=== PATIENT | female | born 1945 | race Caucasian/White ===

== ENCOUNTER 2018-02-26 11:13 | Emergency (ER) | payer MEDICARE, OTHER ==
[2018-02-26 11:52] VITALS: BP 80/62
--- NOTE | 2018-02-26 12:17 | UC ---
Respiratory Complaint HPI - HPI Summary HPI Summary: The patient is a 72-year-old female with a 4 day history of progressively worsening fatigue and cough. She has a long history of dyspnea on exertion states that she is at her baseline. She has had no fever. He has had some chills. She has had no near syncope. She has had no chest pain. She is an ex- smoker. He has had pneumonia once in the past. She has had anorexia but denies any vomiting or diarrhea. - History of Current Complaint Chief Complaint: UCRespiratory Stated Complaint: SLUGGISH,TIRED Time Seen by Provider: 02/26/18 11:56 Hx Obtained From: Patient Onset/Duration: Gradual Onset, Lasting Days Timing: Constant Severity Initially: Mild Severity Currently: Moderate Pain Intensity: 0 Pain Scale Used: 0-10 Numeric Character: Cough: Productive Aggravating Factors: Exertion Alleviating Factors: Nothing Associated Signs And Symptoms: Positive: Dyspnea - Chronic complaint, Chills - Allergies/Home Medications Allergies/Adverse Reactions: Allergies Allergy/AdvReac Type Severity Reaction Status Date / Time No Known Allergies Allergy Verified 02/26/18 11:39 Home Medications: Home Medications Cholecalciferol TAB* [Vitamin D TAB*] 2,000 units PO WEEKLY 02/26/18 [History Confirmed 02/26/18] Levothyroxine TAB* [Synthroid TAB*] 50 mcg PO DAILY 02/26/18 [History Confirmed 02/26/18] PMH/Surg Hx/FS Hx/Imm Hx Previously Healthy: Yes Respiratory History: Pneumonia - Surgical History Surgical History: Yes Surgery Procedure, Year, and Place: hysterectomy - Family History Known Family History: Positive: Hypertension - Social History Alcohol Use: None Substance Use Type: None Smoking Status (MU): Former Smoker When Did the Patient Quit Smoking/Using Tobacco: 12/2016 Review of Systems Constitutional: Fatigue Skin: Negative Eyes: Negative ENT: Negative Respiratory: Cough Cardiovascular: Negative Gastrointestinal: Negative Genitourinary: Negative Motor: Negative Neurovascular: Negative Musculoskeletal: Negative Neurological: Negative Psychological: Negative Is Patient Immunocompromised?: No All Other Systems Reviewed And Are Negative: Yes Physical Exam Triage Information Reviewed: Yes Appearance: No Pain Distress, Ill-Appearing Vital Signs: Initial Vital Signs Temp 100.2 F 02/26/18 11:41 Pulse 97 02/26/18 11:41 Resp 20 02/26/18 11:41 BP 80/62 02/26/18 11:41 Pulse Ox 95 02/26/18 11:41 Vital Signs Reviewed: Yes Eyes: Positive: Conjunctiva Clear ENT: Positive: Hearing grossly normal. Negative: Nasal congestion, Nasal drainage, Trismus, Muffled voice, Hoarse voice Neck: Positive: Supple, Nontender, No Lymphadenopathy Respiratory: Positive: No respiratory distress, No accessory muscle use, Rhonchi Cardiovascular: Positive: RRR, No Murmur Musculoskeletal: Positive: ROM Intact, No Edema Neurological: Positive: Alert Skin Exam: Normal UC Diagnostic Evaluation - Laboratory O2 Sat by Pulse Oximetry: 95 - low normal - Radiology Xray Interpretation: Positive (See Comments) - rll infriltrate Radiology Interpretation Completed By: Radiologist Respiratory Course/Dx - Course Course Of Treatment: D/W [facility] ED attending. accepts pt - Differential Dx/Diagnosis Provider Diagnoses: pneumonia Discharge - Sign-Out/Discharge Documenting (check all that apply): Discharge/Admit/Transfer - Discharge Plan Condition: Guarded Disposition: TRANS HIGHER LVL OF CARE FAC Forms: *Work Release Referrals: Kenyetta Stacy MD [Primary Care Provider] - Additional Instructions: Go directly to the ER You need a higher level of care than we can provide you take your XR I spoke to Ammy Robison NP - Billing Disposition and Condition Condition: GUARDED Disposition: Trans Higher Lvl of Care Fac
--- NOTE | 2018-02-26 13:17 | RAD ---
Indication: Cough. 2 views of the chest including dual energy PA views are reviewed. No mediastinal shift is noted. Lung floyd appear hyperinflated. There is suggestion of some increased density in the periphery of the right lower lobe for which early pneumonia cannot BE excluded. No pneumothorax is noted. IMPRESSION: There is suggestion of early infiltrate in the lateral aspect of the right lower lobe for which pneumonia cannot BE excluded.
== END 2018-02-26 12:29 | disposition short-term general hospital (02) ==
LOC: UCCORT 11:13
DX: J18.9 Pneumonia, unspecified organism (principal); R06.00 Dyspnea, unspecified; R53.83 Other fatigue; Z82.49 Family history of ischemic heart disease and other diseases of the circulatory system; Z87.891 Personal history of nicotine dependence
CPT/HCPCS: 71046; 99202; G0463

== ENCOUNTER 2019-05-20 12:26 | Emergency (ER) | payer MEDICARE, OTHER ==
--- NOTE | 2019-05-20 13:27 | ED ---
GI/ HPI - HPI Summary HPI Summary: 73 year old F presenting to [facility] accompanied by daughter complains of intermittent episodes of fecal incontinence followed by rectal bleeding since a colonoscopy she had over a year ago, worse since this morning. Patient denies associated dizziness, palpitations, shortness of breath. Patient states that she has had these episodes before and that they usually resolve on their own. However, this morning, she had more rectal bleeding than she normally does. Per daughter, patient has been using and filling up many pads. The patient denies pain. The patient rates the pain 0/10 in severity. Symptoms aggravated by nothing. Symptoms alleviated by nothing. Patient states she is not taking blood thinners. Patient states she has not taken any aspirin or ibuprofen. - History of Current Complaint Chief Complaint: EDGIBleed Time Seen by Provider: 05/20/19 13:20 Stated Complaint: BLOOD IN STOOL Hx Obtained From: Patient, Family/Real Estate Leasing Agent - daughter Onset/Duration: Started Weeks Ago, Still Present, Worse Since - this morning Timing: Intermittent Current Severity: None Pain Intensity: 0 Associated Signs and Symptoms: Positive: Negative - Dizziness, shortness of breath, palpitations Aggravating Factor(s): Nothing Alleviating Factor(s): Nothing - Allergy/Home Medications Allergies/Adverse Reactions: Allergies Allergy/AdvReac Type Severity Reaction Status Date / Time No Known Allergies Allergy Verified 05/20/19 12:32 PMH/Surg Hx/FS Hx/Imm Hx Endocrine/Hematology History: Reports: Hx Thyroid Disease Respiratory History: Reports: Hx Pneumonia Psychiatric History: Reports: Other Psychiatric Issues/Disorders - hx anorexia - Surgical History Surgery Procedure, Year, and Place: hysterectomy. colonoscopy 2018 Infectious Disease History: No Infectious Disease History: Denies: Traveled Outside the [place] in Last 30 Days - Family History Known Family History: Positive: Hypertension - Social History Alcohol Use: None Hx Substance Use: No Substance Use Type: Reports: None Hx Tobacco Use: Yes Smoking Status (MU): Former Smoker Review of Systems Negative: Palpitations Negative: Shortness Of Breath Positive: Other - fecal incontinence followed by rectal bleeding Neurological: Negative - Dizziness All Other Systems Reviewed And Are Negative: Yes Physical Exam - Summary Physical Exam Summary: VITAL SIGNS: Reviewed. GENERAL: Patient is a well-developed and nourished FEMALE who is lying comfortable in the stretcher. Patient is not in any acute respiratory distress. HEAD AND FACE: No signs of trauma. No ecchymosis, hematomas or skull depressions. No sinus tenderness. EYES: PERRLA, EOMI x 2, No injected conjunctiva, no nystagmus. EARS: Hearing grossly intact. Ear canals and tympanic membranes are within normal limits. MOUTH: Oropharynx within normal limits. NECK: Supple, trachea is midline, no adenopathy, no JVD, no carotid bruit, no c- spine tenderness, neck with full ROM. CHEST: Symmetric, no tenderness at palpation. LUNGS: Clear to auscultation bilaterally. No wheezing or crackles. CVS: Regular rate and rhythm, S1 and S2 present, no murmurs or gallops appreciated. ABDOMEN: Soft, non-tender. No signs of distention. No rebound, no guarding, and no masses palpated. Bowel sounds are normal. EXTREMITIES: FROM in all major joints, no edema, no cyanosis or clubbing. NEURO: Alert and oriented x 3. No acute neurological deficits. Speech is normal and follows commands. SKIN: Dry and warm. Rectal exam chaperoned by nurse Giraldo: The patient has multiple large hemorrhoids Triage Information Reviewed: Yes Vital Signs On Initial Exam: Initial Vitals Temp Pulse Resp BP Pulse Ox 97.6 F 81 16 147/84 94 05/20/19 12:30 05/20/19 12:30 05/20/19 12:30 05/20/19 12:30 05/20/19 12:30 Vital Signs Reviewed: Yes Diagnostics - Vital Signs Vital Signs Temp Pulse Resp BP Pulse Ox 05/20/19 12:30 97.6 F 81 16 147/84 94 - Laboratory Result Diagrams: 05/20/19 13:42 05/20/19 13:42 Lab Statement: Any lab studies that have been ordered have been reviewed, and results considered in the medical decision making process. Re-Evaluation - Re-Evaluation First Eval Re-Evaluation Time: 16:11 Comment: discussed disposition plan with patient and daughter. patient and daughter are agreeable to discharge GIGU Course/Dx - Course Assessment/Plan: Blood work without any significant abnormality. The H&H is 15.1 and 44. Glucose 103. Total protein 6.1. In the physical exam, the patient has multiple hemorrhoids. I think the patient is bleeding from the hemorrhoids at this point. Occult blood test positive. I discussed my physical exam and findings with Dr. Wooten from GI and he recommends for the patient to be discharged, follow up with GI as an outpatient. The patient was given instructions to return to the emergency room immediately if she continues to have heavy bleeding. The patient and the patients daughter understands and agrees. . I discussed all the findings and test results with the patient. Patient was instructed to return to the emergency room immediately if any of the symptoms returns or worsens. Plan of care was discussed with the patient and she understands and agrees. All questions were answered to patient satisfaction. There were no further complaints or concerns. Lung exam before discharge: CTA B/L. Good air exchange. No wheezing or crackles heard. CVS: S1 and S2 present. No murmurs appreciated. Patient is alert and oriented x 3. Patient is hemodynamically stable. Patient will be discharged home with follow up from in 3 days. - Diagnoses Provider Diagnoses: Rectal bleed, Hemorrhoids - Physician Notifications Discussed Care Of Patient With: Cristobal Wooten Time Discussed With Above Provider: 15:58 Instructed by Provider To: Other - Dr. Wooten, , recommends discharging patient to follow up with him as an outpatient. Discharge ED - Sign-Out/Discharge Documenting (check all that apply): Patient Departure - Discharge Patient Received Moderate/Deep Sedation with Procedure: No - Discharge Plan Condition: Stable Disposition: HOME Patient Education Materials: Hemorrhoids (ED), Rectal Bleeding (ED) Referrals: Cristobal Wooten DO [Doctor of Osteopathy] - 3 Days Additional Instructions: Follow up with Dr. Wooten, gastroenterology, in 3 days. Return to the Emergency Department for new or worsening symptoms. - Billing Disposition and Condition Condition: STABLE Disposition: Home - Attestation Statements Document Initiated by Vicky: Yes Documenting Scribe: Hazel Amaro Provider For Whom Vicky is Documenting (Include Credential): Cole Hull MD Scribe Attestation: Richard, Hazel Amaro, scribed for Cole Hull MD on 05/20/19 at 1843. Scribe Documentation Reviewed: Yes Provider Attestation: The documentation as recorded by the Hazel michaud accurately reflects the service I personally performed and the decisions made by me, Cole Hull MD Status of Scribe Document: Viewed
[2019-05-20 13:53] LABS: ABS Basophils 0.1 10^3/ul (0-0.2); ABS Eosinophils 0.2 10^3/ul (0-0.6); ABS Lymphocytes 1.6 10^3/ul (1.0-4.8); ABS Monocytes 0.4 10^3/ul (0-0.8); ABS Neutrophils 3.2 10^3/ul (1.5-7.7); Eosinophil % 3.7 %; Hematocrit 44 % (35-47); Hemoglobin 15.1 g/dL (12.0-16.0); Lymphocyte % 29.9 %; Mean Corpuscular HGB Conc 34 g/dL (31-36); Mean Corpuscular Hemoglobin 30 pg (27-31); Mean Corpuscular Volume 86 fL (80-97); Mean Platelet Volume 7.7 fL (7.4-10.4); Nucleated Red Blood Cells % 0.1; Platelet Count 212 10^3/uL (150-450); Red Blood Count 5.08 10^6 /uL (3.70-4.87); Red Cell Distribution Width 14 % (10-15); White Blood Count 5.5 10^3/uL (3.5-10.8)
[2019-05-20 14:01] LABS: Activated Partial Thrombo Time 35.3 seconds (26.0-38.0); INR 1.03 (0.82-1.09)
[2019-05-20 14:07] LABS: Albumin/Globulin Ratio 1.9 (1-3); BUN/Creatinine Ratio 13.5 (8-20); C Reactive Protein 1.17 mg/L (<8.01); Calcium 9.4 mg/dL (8.6-10.3); EGFR African American 74.8 (>60); EGFR Non-African American 61.8 (>60); Globulin 2.1 g/dL (2-4); Potassium 4.1 mmol/L (3.5-5.0); Total Bilirubin 0.5 mg/dL (0.2-1.0); Total Protein 6.1 g/dL (6.4-8.9)
[2019-05-20 15:53] LABS: Urine Appearance Clear; Urine Bilirubin Negative (Negative); Urine Blood Negative (Negative); Urine Color Yellow; Urine Glucose Negative (Negative); Urine Ketones Negative (Negative); Urine Nitrite Negative (Negative); Urine Protein Negative (Negative); Urine Specific Gravity 1.023 (1.010-1.030); Urine Urobilinogen Negative (Negative)
[2019-05-20 16:23] VITALS: BP 145/84
== END 2019-05-20 16:22 | disposition home or self-care (01) ==
LOC: ED 12:26
DX: K62.5 Hemorrhage of anus and rectum (principal); K64.9 Unspecified hemorrhoids; E07.9 Disorder of thyroid, unspecified; Z87.891 Personal history of nicotine dependence; Z90.710 Acquired absence of both cervix and uterus
CPT/HCPCS: 36415; 80053; 81003; 82270; 85025; 85610; 85730; 86140; 86850; 86900; 86901; 99282

== ENCOUNTER 2019-12-23 08:02 | Emergency (ER) | payer MEDICARE ==
--- OUTSIDE RECORDS SUMMARY | 2019-12-23 08:09 | XMS REPORT | Continuity of Care Document ---
:1945 External Reference #:[id number] Author Name Kenyetta Stacy MD (transmitted by agent of provider Jennie PAEZ) Address [address] [place] [phone] Care Team Providers Name Role Phone Dakota Francis - Gastroenterology Care Team Information Director Property Jonna Medellin MD - Cardiovascular Care Team Information Director Property [phone] Disease Mary Douglas MD - Care Team Information Director Property [phone] Dermatology Problems Active Problems Provider Date Benign neoplasm of colon Kenyetta Stacy MD Onset: 04/19/2012 Metabolic disease Kenyetta Stacy MD Onset: 02/18/2009 Vitamin D deficiency Kenyetta Stacy MD Onset: 02/01/2008 Cyst of ovary Kenyetta Stacy MD Onset: 01/28/2006 Osteoporosis Kenyetta Stacy MD Onset: 08/27/2005 Hypothyroidism Kenyetta Stacy MD Onset: 05/20/2005 Vesicular eczema of hands and/or feet Kenyetta Stacy MD Onset: 05/20/2005 Tobacco user Kenyetta Stacy MD Onset: 05/20/2005 Osteochondropathy Kenyetta Stacy MD Onset: 05/20/2005 Mixed hyperlipidemia Kenyetta Stacy MD Onset: 05/20/2005 Chronic obstructive lung disease Kenyetta Stacy MD Onset: 08/11/2018 Ex-smoker Kenyetta Stacy MD Onset: 02/28/2018 Social History Type Date Description Comments Sex Unknown Tobacco Use Start: Unknown End: Former Cigar Smoker formerly little cigars, 20 per day, 1 ppd, eligible for lung cancer screening Smoking Status Reviewed: 09/14/19 Former Cigar Smoker formerly little cigars , 20 per day, 1 ppd, eligible for lung cancer screening ETOH Use Denies alcohol use Tobacco Use Start: Unknown End: Patient is a former 11/23/16 eligible for smoker lung cancer screening over 30 pack years, smoking 1-2ppd Document: 11/23/16 - Followup: Hypothy [facility]-3 08/11/18 eligible for lung cancer screening and declines. [facility] Allergies, Adverse Reactions, Alerts Description No Known Drug Allergies Medications Active Medications SIG Qnty Indications Ordering Date Provider Metronidazole apply to rosacea 55gm L71.9 Stacy, 03/09/2019 1% Gel daily MD Kenyetta Levothyroxine Sodium 1 by mouth every 30tabs E03.9 Stacy, 08/14/2018 day first thing in MD Kenyetta 75mcg Tablets morning, no food or meds for 30min Incruse Ellipta 1 inhalation daily 30units J44.9 Regis, 02/28/2018 MD Kenyetta 62.5mcg/Inh Aerosol Spacer For Use With use with ventolin 1units J44.1 Regis, 02/28/2018 Ventolin inhaler, instruct MD Kenyetta in use J44.9 Aerochamber Plus use with inhaler 1units J44.1 Kenyetta Stacy MD 2017 Misc J44.9 Ventolin HFA 2 inhalations every 6 1units J44.9 Unknown 02/26/2018 108(90Base) mcg/Act hours prn Aerosol Immunizations CPT Code Status Date Vaccine Reaction Lot # [id number] Given 03/30/2003 Tetanus And Diptheria Toxoid 7 Years And Older Preserv Free 10815 Given 03/30/2003 Pneumococcal 23 Immunization Adult Or Immunosuppressed Patient 78659 Refused 09/14/2019 Fluzone Highdose Age 65 And Over Preservative & Antibiotic Free 74572 Refused 09/14/2019 Shingrix (Shingles) Zoster Vaccine HZV, Recombinant, Subunit, Adj 77538 Refused 09/14/2019 Prevnar 13 Pneumococal Conjugate Vaccine 35670 Refused 09/14/2019 Tdap (Adacel) Ages 7 And Above Only 20206 Refused 03/09/2019 Shingrix (Shingles) Zoster Vaccine HZV, Recombinant, Subunit, Adj 98203 Refused 03/09/2019 Prevnar 13 Pneumococal Conjugate Vaccine 64119 Refused 03/09/2019 Pneumococcal 23 Immunization Adult Or Immunosuppressed Patient 49972 Refused 03/09/2019 Tdap (Adacel) Ages 7 And Above Only 46306 Refused 08/11/2018 Prevnar 13 Pneumococal Conjugate Pt says " I don' t do Vaccine shots" [facility] 08/11/18 75777 Refused 08/11/2018 Prevnar 13 Pneumococal Conjugate Vaccine 38007 Refused 08/11/2018 Tdap (Adacel) Ages 7 And Above Only Pt says " I don't do shots" [facility] 08/11/18 73118 Refused 08/11/2018 Pneumococcal 23 Immunization Adult Pt says " I don 't do Or Immunosuppressed Patient shots" [facility] 08/11/18 07214 Refused 08/11/2018 Shingrix (Shingles) Zoster Vaccine Pt says " I don 't do HZV, Recombinant, Subunit, Adj shots" [facility] 08/11/18 Q2039 Refused 08/11/2018 Flu Vaccine NOS Pt says " I don't do shots" [facility] 08/11/18 98190 Refused 05/31/2017 Influenza Virus Vaccine,Quadrivalent,Split,Preserv Free, 0.5mL,Im 78346 Refused 05/25/2016 Pneumococcal 23 Immunization Adult Or Immunosuppressed Patient 48334 Refused 05/25/2016 Influenza Virus Vaccine,Quadrivalent,Split,Preserv Free, 0.5mL,Im 61806 Refused 05/25/2016 Zoster (Zostavax) 39114 Refused 05/25/2016 Prevnar 13 Pneumococal Conjugate Vaccine 80757 Refused 05/22/2015 Pneumococcal 23 Immunization Adult Or Immunosuppressed Patient 78770 Refused 05/22/2015 Zoster (Zostavax) 87457 Refused 05/22/2015 Tdap (Adacel) Ages 7 And Above Only 26600 Refused 05/22/2015 Influenza Virus Vaccine,Quadrivalent,Split,Preserv Free, 0.5mL,Im 88878 Refused 05/22/2015 Prevnar 13 Pneumococal Conjugate Vaccine 44686 Refused 11/07/2014 Prevnar 13 Pneumococal Conjugate Vaccine 76116 Refused 04/30/2014 Influenza Virus Vaccine,Quadrivalent,Split,Preserv Free, 0.5mL,Im Vital Signs Date Vital Result Comment 11/08/2019 9:56am Body Temperature 97.1 F Weight 125.00 lb Heart Rate 72 /min BP Systolic 126 mmHg BP Diastolic 68 mmHg Respiratory Rate 18 /min Height 63.5 inches 5'3.50" BMI (Body Mass Index) 21.8 kg/m2 09/14/2019 11:19am Weight 127.00 lb Heart Rate 76 /min BP Systolic 120 mmHg BP Diastolic 76 mmHg Respiratory Rate 18 /min Height 63.5 inches 5'3.50" O2 % BldC Oximetry 95 % Ra BMI (Body Mass Index) 22.1 kg/m2 Results Test Acquired Date Facility Test Result H/L Range Note CBS 10/28/2019 [facility] White Blood 5.1 K/uL Normal 3.1-10.7 1 W/Automated (315)- - Count Diff Red Blood Count 5.27 M/uL Normal 3.90-5.40 Hemoglobin 15.3 gm/dL Normal 11.6-15.8 Hematocrit 47.0 % High 36.0-46.1 Mean Cell Volume 89.2 fl Normal 80.9-99.0 Mean Corpuscular HGB 29.0 pg Normal 25.9-32.7 Mean Corpuscular HGB Conc 32.6 g/dL Normal 30.8-34.3 Platelet Count 210 K/uL Normal 155-360 Red Cell Distri Width SD 42.6 fl Normal 36-47 Red Cell Distri Width %CV 13.1 % Normal 11.7-14.4 Mean Platelet Volume 10.0 fl Normal 8.9-12.4 Neut% 52.4 % Normal 40.4-72.8 Lymph % 36.8 % Normal 20.0-42.0 Kimball % 6.5 % Normal 4.3-13.2 Eo% 3.1 % Normal 0.0-6.6 Bas% 0.8 % Normal 0.0-1.1 Immature Grans 0.4 % Normal 0.0-5.0 NRBC % 0.0 /100WBC < 10/ 100 WBC Neut# 2.68 K/uL Normal 1.8-7.0 Lymph # 1.88 K/uL Normal 1.0-4.0 Kimball # 0.33 K/uL Normal 0.3-0.9 Eos # 0.16 K/uL Normal 0.0-0.5 Baso # 0.04 K/uL Normal 0.0-0.1 Immature Grans Absolute 0.02 K/uL NRBC # 0.00 K/uL Basic Metabolic 10/28/2019 [facility] Glucose 92 mg/dL Normal 74-106 Panel (315)- - BUN 15 mg/dL Normal 7-18 Creatinine 0.9 mg/dL Normal 0.6-1.3 Glom Filtration Rate, Estimate >60 mL/min >60 If >60 mL/min >60 2 BUN/Creat 16.6 ratio Sodium 140 mmol/L Normal 136-145 Potassium 3.9 mmol/L Normal 3.5-5.1 Chloride 109 mmol/L High 98-107 Carbon Dioxide 29 mmol/L Normal 21-32 Anion Gap 2 mEq/L Low 8-16 Calcium 9.4 mg/dL Normal 8.5-10.1 Laboratory test 10/28/2019 [facility] Troponin-I < 0.015 3 finding (315)- - ng/mL CBS W/Automated 10/27/2019 [facility] White Blood 6.7 K/ uL Normal 3.1-10 4 Diff (315)- - Count .7 Red Blood Count 5.16 M/uL Normal 3.90-5.40 Hemoglobin 15.0 gm/dL Normal 11.6-15.8 Hematocrit 45.5 % Normal 36.0-46.1 Mean Cell Volume 88.2 fl Normal 80.9-99.0 Mean Corpuscular HGB 29.1 pg Normal 25.9-32.7 Mean Corpuscular HGB Conc 33.0 g/dL Normal 30.8-34.3 Platelet Count 233 K/uL Normal 155-360 Red Cell Distri Width SD 42.1 fl Normal 36-47 Red Cell Distri Width %CV 13.1 % Normal 11.7-14.4 Mean Platelet Volume 9.8 fl Normal 8.9-12.4 Neut% 65.2 % Normal 40.4-72.8 Lymph % 24.2 % Normal 20.0-42.0 Kimball % 7.5 % Normal 4.3-13.2 Eo% 2.3 % Normal 0.0-6.6 Bas% 0.5 % Normal 0.0-1.1 Immature Grans 0.3 % Normal 0.0-5.0 NRBC % 0.0 /100WBC < 10/ 100 WBC Neut# 4.34 K/uL Normal 1.8-7.0 Lymph # 1.61 K/uL Normal 1.0-4.0 Kimball # 0.50 K/uL Normal 0.3-0.9 Eos # 0.15 K/uL Normal 0.0-0.5 Baso # 0.03 K/uL Normal 0.0-0.1 Immature Grans Absolute 0.02 K/uL NRBC # 0.00 K/uL Comprehensive Metabolic 10/27/2019 [facility] Glucose 114 mg/dL High 74-106 Panel (315)- - BUN 17 mg/dL Normal 7-18 Creatinine 0.9 mg/dL Normal 0.6-1.3 Glom Filtration Rate, Estimate >60 mL/min >60 If >60 mL/min >60 5 BUN/Creat 18.8 ratio Sodium 141 mmol/L Normal 136-145 Potassium 4.0 mmol/L Normal 3.5-5.1 Chloride 111 mmol/L High 98-107 Carbon Dioxide 27 mmol/L Normal 21-32 Anion Gap 3 mEq/L Low 8-16 Calcium 9.0 mg/dL Normal 8.5-10.1 Total Protein 6.8 g/dL Normal 6.4-8.2 Albumin 3.6 g/dL Normal 3.4-5.0 Globulin 3.2 g/dL Normal 1.9-4.3 Alb/Glob 1.1 ratio Bilirubin,Total 0.5 mg/dL Normal 0.2-1.0 6 Sgot/Ast 13 U/L Low 15-37 7 SGPT/Alt 18 U/L Normal 12-78 Alkaline Phosphatase 74 U/L Normal 45-117 Laboratory test 10/27/2019 [facility] Troponin-I < 0.015 8 finding (315)- - ng/mL CBC with [facility] K/uL 4.1-11. 9, 10 Diff-fcmg 0 RBC 5.35 M/uL 4.00-5.40 11 Hemoglobin 16.1 gm/dL High 12.0-16.0 12 Hematocrit 46.9 % 36.0-47.0 13 MCV 87.6 fL 80.0-95.0 14 MCH 30.0 pg 27.0-32.0 15 MCHC 34.3 g/dL 32.0-36.0 16 RDW 13.8 % 10.5-14.5 17 PLT Count 244 K/ul 150-400 18 MPV 7.9 FL 7.1-10.7 Neutrophil 66.2 % 35.0-75.0 19 Lymphocyte 24.9 % 16.0-52.0 20 Monocyte 6.3 % 0.0-8.0 21 Eosinophil 2.0 % 0.0-5.0 Basophil 0.6 % 0.0-4.0 Abs Neutrophils 4.7 K/uL 1.8-7.7 22 Abs Lymphocytes 1.8 K/uL 1.2-4.8 23 Abs Monocytes 0.4 K/uL 0.0-0.8 24 Abs Eosinophils 0.1 K/uL 0.0-0.5 25 Abs Basophils 0.0 K/uL 0.0-0.2 26 Comprehensive Met Panel-[facility] 09/14/2019 [facility] Sodium 140 mmol/L 135- 146 27 Potassium 4.3 mmol/L 3.5-5.2 Chloride# 104 mmol/L 97-110 28 Carbon Dioxide 27 mmol/L 24-34 Calcium 10.0 mg/dL 8.5-10.5 29 Glucose 91 mg/dL 70-105 BUN 13 mg/dL 6-26 Creatinine 0.8 mg/dL 0.5-1.4 Total Protein 6.6 g/dL 6.0-8.0 Albumin 4.6 g/dL 3.6-4.9 Globulin 2.0 g/dL 2.0-3.5 A/G Ratio 2.3 Ratio High 1.0-2.2 Total Bilirubin 0.8 mg/dL 0.1-1.3 Alkaline Phosphatase 70 U/L 24-140 Alt 12 U/L 3-42 Ast 17 U/L 8-42 Anion Gap 9 mmol/L 5-15 30 Female Egfr 68 >60 31 Male Egfr 85 >60 32 Lipid 09/14/2019 [facility] Cholesterol 306 mg/dL High 50-199 Triglycerides 146 mg/dL 30-200 HDL 53 mg/dL 35-85 33 Chol/ HDL Ratio 5.8 ratio High 3.7-5.6 VLDL 29 mg/dL 2-29 LDL (Calc) 224 mg/dL High 20-99 34 Laboratory test finding 09/14/2019 [facility] TSH 6.28 uIU/mL High 0.35- 4.94 Free T4 0.86 ng/dL 0.70-1.48 Inr/Protime 05/20/2019 [facility] Inr 1.03 Normal 0.82-1.09 35 Laboratory test 05/20/2019 [facility] Activated 35.3 seconds Normal 26.0-38.0 finding Partial Thrombo Time CBC Auto Diff 05/20/2019 [facility] White Blood 5.5 10^3/uL Normal 3.5-10.8 Count Red Blood Count 5.08 10^6/uL High 3.70-4.87 Hemoglobin 15.1 g/dL Normal 12.0-16.0 Hematocrit 44 % Normal 35-47 Mean Corpuscular Volume 86 fL Normal 80-97 Mean Corpuscular Hemoglobin 30 pg Normal 27-31 Mean Corpuscular HGB Conc 34 g/dL Normal 31-36 Red Cell Distribution Width 14 % Normal 10-15 Platelet Count 212 10^3/uL Normal 150-450 Mean Platelet Volume 7.7 fL Normal 7.4-10.4 Abs Neutrophils 3.2 10^3/uL Normal 1.5-7.7 Abs Lymphocytes 1.6 10^3/uL Normal 1.0-4.8 Abs Monocytes 0.4 10^3/uL Normal 0-0.8 Abs Eosinophils 0.2 10^3/uL Normal 0-0.6 Abs Basophils 0.1 10^3/uL Normal 0-0.2 Abs Nucleated RBC 0.0 10^3/uL Granulocyte % 57.5 % Lymphocyte % 29.9 % Monocyte % 7.9 % Eosinophil % 3.7 % Basophil % 1.0 % Nucleated Red Blood Cells % 0.1 Comp Metabolic Panel 05/20/2019 [facility] Sodium 139 mmol/L Normal 135-145 Potassium 4.1 mmol/L Normal 3.5-5.0 Chloride 107 mmol/L Normal 101-111 Co2 Carbon Dioxide 27 mmol/L Normal 22-32 Anion Gap 5 mmol/L Normal 2-11 Glucose 103 mg/dL High 70-100 Blood Urea Nitrogen 12 mg/dL Normal 6-24 Creatinine 0.89 mg/dL Normal 0.51-0.95 BUN/Creatinine Ratio 13.5 Normal 8-20 Calcium 9.4 mg/dL Normal 8.6-10.3 Total Protein 6.1 g/dL Low 6.4-8.9 Albumin 4.0 g/dL Normal 3.2-5.2 Globulin 2.1 g/dL Normal 2-4 Albumin/Globulin Ratio 1.9 Normal 1-3 Total Bilirubin 0.50 mg/dL Normal 0.2-1.0 Alkaline Phosphatase 74 U/L Normal 34-104 Alt 13 U/L Normal 7-52 Ast 18 U/L Normal 13-39 Egfr Non- 61.8 >60 Egfr 74.8 >60 36 Laboratory test 05/20/2019 [facility] C Reactive 1.17 mg/L Normal <8.01 finding Protein Type & Screen 05/20/2019 [facility] Patient Blood O Positive Type Antibody Screen NEGATIVE Urinalysis Profile 05/20/2019 [facility] Urine Color Yellow Urine Appearance Clear Urine Specific [place] 1.023 Normal 1.010-1.030 Urine pH 6.0 Normal 5-9 Urine Urobilinogen Negative Negative Urine Ketones Negative Negative Urine Protein Negative Negative Urine Leukocytes Negative Negative Urine Blood Negative Negative Urine Nitrite Negative Negative Urine Bilirubin Negative Negative Urine Glucose Negative Negative Stool Occult 05/20/2019 [facility] Stool Occult SEE RESULT Positive 37 Blood, Screen Blood, Screen BELOW 1 CP 2 Note: Persistent reduction for 3 months or more in an eGFR <60 mL/min/1.73 m2 defines CKD. Patients with eGFR values >/=60 mL/min/1.73 m2 may also have CKD if evidence of persistent proteinuria is present. The original MDRD equation for estimated GFR is not valid for patients less than 18 years of age. Additional information may be found at www.kdoqi.org. 3 0.0 - 0.045 ng/mL: Normal 0.046 - 0.5 ng/mL: Suggestive 0.6 - 1.5 ng/mL: Consistent 4 HAVING CHEST PAINS 5 Note: Persistent reduction for 3 months or more in an eGFR <60 mL/min/1.73 m2 defines CKD. Patients with eGFR values >/=60 mL/min/1.73 m2 may also have CKD if evidence of persistent proteinuria is present. The original MDRD equation for estimated GFR is not valid for patients less than 18 years of age. Additional information may be found at www.kdoqi.org. 6 Please Note: Patients undergoing treatment with eltrombopag may have falsely elevated results with this assay method. 7 Values below the stated reference ranges of AST and ALT can be seen in normal populations. Clinical correlation is suggested. 8 0.0 - 0.045 ng/mL: Normal 0.046 - 0.5 ng/mL: Suggestive 0.6 - 1.5 ng/mL: Consistent 9 today , letter , refill thyroid meds, admits some noncompliance 10 Updated Reference Range 06/2019 11 Updated Reference Range 06/2019 12 Updated Reference Range 06/2019 13 Updated Reference Range 06/2019 14 Updated Reference Range 06/2019 15 Updated Reference Range 06/2019 16 Updated Reference range 06/2019 17 Updated Reference range 06/2019 18 Updated Reference Range 06/2019 19 Updated Reference Range 06/2019 20 Updated Reference Range 06/2019 21 Updated Reference Range 06/2019 22 Updated Reference Range 06/2019 23 Updated Reference Range 06/2019 24 Updated Reference Range 06/2019 25 Updated Reference Range 06/2019 26 Updated Reference Range 06/2019 27 Updated reference range on new analyzer 28 Updated reference range on new analyzer 29 Updated reference range 12-28-2018 30 Updated Reference Range 31 Concerning GFR Guidelines for Americans: Normal function or mild renal disease, if clinically at risk: >/= 60 mL/min Moderately decreased: 30-59 Severely decreased: 15-29 Renal failure: <15 There is reduced accuracy above 60ml/min/1.73 m squared, but the numeric value may be clinically useful in the near 60 range 32 Concerning GFR Guidelines: Normal function or mild renal disease, if clinically at risk: >/= 60 mL/min Moderately decreased: 30-59 Severely decreased: 15-29 Renal failure: <15 There is reduced accuracy above 60ml/min/1.73 m squared, but the numeric value may be clinically useful in the near 60 range Glomerular Filtration Rate (GFR) is estimated based on the CKD-EPI equation, which assumes a steady state for creatinine as recommended by the National Kidney Disease Education Program in conjunction with the National Institutes of Health and the National Kidney Foundation. Clinical conditions in which it may be necessary to measure GFR by using clearance methods include extremes of age and body size, severe malnutrition or obesity, diseases of skeletal muscle, paraplegia or quadriplegia, vegetarian diet, rapidly changing kidney function, and calculation of the dose of potentially toxic drugs that are excreted by the kidneys. 33 Per NCEP ATP III Guidelines: Results lower than 40 mg/dL are suggestive of increased risk for coronary artery disease. Results > or = to 60 mg/dL are considered a negative risk factor. 34 Per NCEP ATP III Guidelines: Normal Population <130 Patients with medical conditions: CHD/DM Optimal: <100 Borderline high: 130-159 High: 160-189 Very high: >189 35 Standard intensity warfarin therapeutic range: 2.0-3.0 High intensity warfarin therapeutic range: 2.5-3.5 36 Because ethnic data is not always readily available, this report includes an eGFR for both -Americans and non- Americans. The National Kidney Disease Education Program (NKDEP) does not endorse the use of the MDRD equation for patients that are not between the ages of 18 and 70, are , have extremes of body size, muscle mass, or nutritional status, or are non- or non-. According to the National Kidney Foundation, irrespective of diagnosis, the stage of the disease is based on the level of kidney function: Stage Description GFR(mL/min/1.73 m(2)) 1 Kidney damage with normal or decreased GFR 90 2 Kidney damage with mild decrease in GFR 60-89 3 Moderate decrease in GFR 30-59 4 Severe decrease in GFR 15-29 5 Kidney failure <15 (or dialysis) 37 SEE RESULT BELOW Name: ALIN RITTER : [address]: Cole Hull MD Acct: [id number] Unit: [id number] AGE: 73 Location: ED Re05/20/19 SEX: F Status: REG ER SPEC: [id number] CHA: 05/20/19-[address] [facility] [address]: Cole Hull MD REQ: [id number] RECD: 05/20/199 STATUS: GLADYS GIRON DR: Kenyetta Stacy MD _ SOURCE: STOOL SPDESC: ORDERED: Occult Bl, Scn Procedure Result Reported Site Stool Occult Blood (1) Final 05/20/19- 1554 [facility] Stool Occult Blood Positive * [facility] - Main Lab . END OF REPORT DEPARTMENT OF PATHOLOGY, [address] [place] [address] Deshawn Simental M.D. Director [facility] # [id number] Procedures Date Code Description Status 10/26/2019 [id number] Mammogram Completed 09/14/2019 67743 Measure Blood Oxygen Level Single Determination Completed 08/11/2018 [id number] Mammogram Completed 04/14/2018 [id number] Colonoscopy Completed 05/14/2015 [id number] Mammogram Completed Medical Devices Description No Information Available Encounters Type Date Location Provider Dx Diagnosis Office Visit 09/14/2019 Kenyetta Vasques MD Z00.01 Encounter for 11:15a general adult medical exam w abnormal findings E03.9 Hypothyroidism, unspecified J44.9 Chronic obstructive pulmonary disease, unspecified E78.2 Mixed hyperlipidemia Z87.891 Personal history of nicotine dependence R91.8 Other nonspecific abnormal finding of lung field L71.9 Rosacea, unspecified E55.9 Vitamin D deficiency, unspecified M81.0 Age-related osteoporosis w/o current pathological fracture Z13.31 Encounter for screening for depression Z12.11 Encounter for screening for malignant neoplasm of colon Z12.31 Encntr screen mammogram for malignant neoplasm of breast Z28.21 Immunization not carried out because of patient refusal D48.5 Neoplasm of uncertain behavior of skin Assessments Date Code Description Provider 11/08/2019 R07.9 Chest pain, unspecified Kenyetta Stacy MD 11/08/2019 J44.9 Chronic obstructive pulmonary disease, Kenyetta Stacy MD unspecified 11/08/2019 E78.2 Mixed hyperlipidemia Kenyetta Stacy MD 11/08/2019 E03.9 Hypothyroidism, unspecified Kenyetta Stacy MD 11/08/2019 Z87.891 Personal history of nicotine dependence Kenyetta Stacy MD 11/08/2019 D48.5 Neoplasm of uncertain behavior of skin Kenyetta Stacy MD 09/14/2019 E03.9 Hypothyroidism, unspecified Kenyetta Stacy MD 09/14/2019 Z00.01 Encounter for general adult medical Kenyetta Stacy MD examination with abnorma 09/14/2019 J44.9 Chronic obstructive pulmonary disease, Kenyetta Stacy MD unspecified 09/14/2019 E03.9 Hypothyroidism, unspecified Kenyetta Stacy MD 09/14/2019 E78.2 Mixed hyperlipidemia Kenyetta Stacy MD 09/14/2019 J44.9 Chronic obstructive pulmonary disease, Kenyetta Stacy MD unspecified 09/14/2019 E78.2 Mixed hyperlipidemia Kenyetta Stacy MD 09/14/2019 Z87.891 Personal history of nicotine dependence Kenyetta Stacy MD 09/14/2019 R91.8 Other nonspecific abnormal finding of lung Kenyetta Stacy MD field 09/14/2019 L71.9 Rosacea, unspecified Kenyetta Stacy MD 09/14/2019 E55.9 Vitamin D deficiency, unspecified Kenyetta Stacy MD 09/14/2019 M81.0 Age-related osteoporosis without current Kenyetta Stacy MD pathological fractu 09/14/2019 Z13.31 Encounter for screening for depression Kenyetta Stacy MD 09/14/2019 Z12.11 Encounter for screening for malignant Kenyetta Stacy MD neoplasm of colon 09/14/2019 Z12.31 Encounter for screening mammogram for Kenyetta Stacy MD malignant neoplasm of breast 09/14/2019 Z28.21 Immunization not carried out because of Kenyetta Stacy MD patient refusal 09/14/2019 D48.5 Neoplasm of uncertain behavior of skin Kenyetta Stacy MD 09/14/2019 E03.9 Hypothyroidism, unspecified Schedule, Laboratory 09/14/2019 J44.9 Chronic obstructive pulmonary disease, Schedule, Laboratory unspecified 09/14/2019 E78.2 Mixed hyperlipidemia Schedule, Laboratory 09/14/2019 E03.9 Hypothyroidism, unspecified [facility] 09/14/2019 J44.9 Chronic obstructive pulmonary disease, [facility] unspecified 09/14/2019 E78.2 Mixed hyperlipidemia [facility] Plan of Treatment Future Appointment(s):03/06/2020 8:45 am - Kenyetta Stacy MD at [facility]2019 - Kenyetta Stacy, MDR07.9 Chest pain, unspecifiedComments:chest pain, no recurrenceno concerning findings in ER workupreferral to cardio for stress testing recommended. seek care if sx return, at risk for heart attack and stroke Note, ct angio did not report coronary or other artery calcificationsReferral:Jonna Medellin MD, Cardiology/Phys/OsteoFollow up:february as nkuznxuR03.9 Chronic obstructive pulmonary disease, unspecifiedComments: stable cont meds they are concerned about cost, advised to check cost of spiriva , atrovent and let me knowadvair and symbicort add steroids adn different meds, check those prices I would zsaxgzgbI69.2 Mixed hyperlipidemiaComments:has always declined statins, let me know if you change your mindE03.9 Hypothyroidism , unspecifiedComments:hypothyroidClinically stable. continue meds Reviewed proper dosing of meds, in the morning, nothingelse to eat or drink for 30min. Watch for clinical sx of over treatment or under treatment. Call for fatigue, change in bowel habits/skin/hair/nails, temp intolerance, or other concerns.Z87.891 Personal history of nicotine dependenceComments:remains non smoker, doing well, encouragement pchfwY01.5 Neoplasm of uncertain behavior of skinComments:pt with enlarging scaly warty lesion right checkrecommend referral to derm or surgeon or have me biopsy or treat with liquid nitro to have this evaluated for skin cancer, she has declined for several years, will do referral now.Referral:Mary Douglas MD, Dermatology Functional Status Description No Information Available Mental Status Description No Information Available Referrals Refer to Reason for Referral Status Appt Date Jonna Medellin MD chest pain [facility], Scheduled copd, high chol has always refused statins, hypothyroid, osteoporosis, former smoker quit 2016 faxed 11/08/19 js confirmed with Ute at office patients appt date and time, let her know we faxed referral 11/08/[address] [place] [address] [phone] Mary Douglas MD right cheek skin lesion present since at Created least 2014 and has refused derm consult until now faxed 11/08/19 called office to confirm appt and patient had cancelled appt for 11/09/19, they will reach out and rescheudle with her 11/08/19 [id number] [place] [address] [facility] [phone]
[2019-12-23 08:15] VITALS: BP 107/67
--- NOTE | 2019-12-23 08:18 | UC ---
Skin Complaint HPI - HPI Summary HPI Summary: 74-year-old female pimple on her mid-upper lip starting approximately one week ago. She states that she picked at it and squeezed it and since then it has gradually become increasingly erythematous with pus drainage, swelling tetanus. She denies any fever or chills. She has a history of cold sores in childhood , but never in her adult life. She informed me she had applied salt to the area , toothpaste alcohol, which only worsened the redness and swelling. - History of Current Complaint Chief Complaint: UCSkin Time Seen by Provider: 12/23/19 08:06 Stated Complaint: SORE ON MOUTH Hx Obtained From: Patient, Family/Conductor Pullman ?: No Onset/Duration: Gradual Onset, Lasting Days Skin Exposure Onset/Duration: Days Ago Timing: Constant Onset Severity: Mild Current Severity: Moderate Pain Intensity: 0 Location: Other - Mid upper lip. Character: Swelling, Redness, Raised, Painful Aggravating Factor(s): Touch Alleviating Factor(s): Nothing Associated Signs & Symptoms: Positive: Negative - Allergy/Home Medications Allergies/Adverse Reactions: Allergies Allergy/AdvReac Type Severity Reaction Status Date / Time No Known Allergies Allergy Verified 12/23/19 08:15 Home Medications: Home Medications Cholecalciferol TAB* [Vitamin D TAB*] 2,000 units PO WEEKLY 02/26/18 [History Confirmed 12/23/19] Levothyroxine TAB* [Synthroid TAB*] 50 mcg PO DAILY 02/26/18 [History Confirmed 12/23/19] Cephalexin CAP* [Keflex 250 CAP*] 250 mg PO TID 10 Days #30 cap 12/23/19 [Rx] Mupirocin 2% OINT* [Bactroban 2 % Oint*] 1 applic TOPICAL BID #1 tube 12/23/19 [ Rx] Mv-Mn/C/Glutamin/Lysin/[id number] [Airborne Gummies] 1 chw PO DAILY 12/23/19 [ History Confirmed 12/23/19] PMH/Surg Hx/FS Hx/Imm Hx Previously Healthy: Yes Endocrine History: Thyroid Disease Respiratory History: COPD - Surgical History Surgical History: Yes Surgery Procedure, Year, and Place: hysterectomy. colonoscopy 2018 - Family History Known Family History: Positive: Hypertension - Social History Occupation: Retired Lives: With Family Alcohol Use: None Substance Use Type: None Smoking Status (MU): Former Smoker When Did the Patient Quit Smoking/Using Tobacco: 2017 Review of Systems All Other Systems Reviewed And Are Negative: Yes Skin: Positive: Rash - Rash to mid upper lip with swelling and erythema. Is Patient Immunocompromised?: No Physical Exam Triage Information Reviewed: Yes Appearance: Well-Appearing, No Pain Distress, Well-Nourished Vital Signs: Initial Vital Signs Temp 98.3 F 12/23/19 08:08 Pulse 85 12/23/19 08:08 Resp 18 12/23/19 08:08 BP 107/67 12/23/19 08:08 Pulse Ox 95 12/23/19 08:08 Vital Signs Reviewed: Yes Eyes: Positive: Conjunctiva Clear ENT: Positive: Pharynx normal, TMs normal, Uvula midline Neck: Positive: Supple, Nontender, No Lymphadenopathy Psychological Exam: Normal Skin: Positive: Other - Patient has swelling and erythema to the mid upper lip with a honey colored crusted lesion, which measures approximately 0.75 cm in diameter surrounded by erythema. No active drainage. Course/Dx - Course Course Of Treatment: The patient is comfortable here. We discussed good handwashing before and after applying the mupirocin. She lives with her daughter make sure that she takes her medication and apply the ointment. If she develops any facial swelling, fever or chills or any worsening symptoms she is to go to the emergency room for further treatment. If this is not improved in one week then she is to follow-up with her primary care provider. - Diagnoses Provider Diagnosis: Impetigo Discharge ED - Sign-Out/Discharge Documenting (check all that apply): Patient Departure All imaging exams completed and their final reports reviewed: No Studies - Discharge Plan Condition: Good Disposition: HOME Prescriptions: Cephalexin CAP* [Keflex 250 CAP*] 250 mg PO TID 10 Days #30 cap Mupirocin 2% OINT* [Bactroban 2 % Oint*] 1 applic TOPICAL BID #1 tube Patient Education Materials: Impetigo (DC), Cellulitis (DC) Referrals: Kenyetta Stacy MD [Primary Care Provider] - Additional Instructions: You may continue to apply warm compresses to the area 3 or 4 times a day for 20 minutes each time. Do not pick at the area. Follow-up with your primary care provider if no improvement in 1 week. If you develop any facial swelling, fever or chills your to go to the emergency room for further treatment. It handwashing if you touch your face, good handwashing before and after you apply the medication. - Billing Disposition and Condition Condition: GOOD Disposition: Home - Attestation Statements Provider Attestation: This patient was not seen by me. I was available for consult. Chart reviewed. GILMA
== END 2019-12-23 08:49 | disposition home or self-care (01) ==
LOC: UCCORT 08:02
DX: L01.00 Impetigo, unspecified (principal); E07.9 Disorder of thyroid, unspecified; J44.9 Chronic obstructive pulmonary disease, unspecified; Z79.890 Hormone replacement therapy; Z87.891 Personal history of nicotine dependence
CPT/HCPCS: 99212; G0463